=== PATIENT | male | born 1965 | race Caucasian/White ===

== ENCOUNTER 2016-08-03 11:07 | Inpatient (IN) | payer OTHER, MEDICAID ==
[~2016-08-03] VITALS: Ht 167.6 cm; Wt 95.9 kg
[~2016-08-03 11:07] MED LIST: GLIP2.5ER PO; LISI-661 PO; METF500T4 PO; OLAN5TAB2 PO; OLAN7.5T2 PO; OMEP20 PO; SIMV-259 PO; SITA100 PO
[2016-08-03 13:00] VITALS: BP 120/81
[2016-08-03] MEDS ORDERED: HALOPERIDOL 5 MG TABLET PO PRN (13:15)
[2016-08-03] MEDS ORDERED: MAGNESIUM HYDROXIDE SUSPENSION 30 ML UDCUP PO PRN (13:15)
[2016-08-03] MEDS ORDERED: LORazepam 2 MG TABLET PO PRN (13:15)
[2016-08-03] MEDS ORDERED: ZOLPIDEM TARTRATE 10 MG TABLET PO PRN (13:15)
[2016-08-03] MEDS ORDERED: LOPERAMIDE HCL 2 MG CAPSULE PO PRN (13:15)
[2016-08-03] MEDS ORDERED: PROMETHAZINE HCL 25 MG TABLET PO PRN (13:15)
[2016-08-03] MEDS ORDERED: MAG HYDROX/AL HYDROX/SIMETH ES 30 ML SUSPENSION UDCUP PO PRN (13:15)
[2016-08-03] MEDS ORDERED: GLUCAGON,HUMAN RECOMBINANT 1 MG VIAL IM PRN (14:30)
[2016-08-03] MEDS: INSULIN ASPART 100 UNITS/ML SQ PRN ×3 (14:42→20:10)
[2016-08-03 15:36] LABS: GLUCOSE,POINT OF CARE 392 MG/DL (70-110)
[2016-08-03 16:00] VITALS: BP 136/99
[2016-08-03] MEDS ORDERED: INFLUENZA VIRUS VACCINE QVS 2016-17 (3YR+)/PF 60 MCG/0.5 ML SYRINGE IM ONE (16:30)
[2016-08-03] MEDS ORDERED: DIPH25 PO (16:40)
[2016-08-03] MEDS ORDERED: ZIPR40CA2 PO (16:40)
[2016-08-03] MEDS: MetFORMIN HCL 500 MG TABLET PO SCH (16:42)
[2016-08-03] MEDS: LISINOPRIL 10 MG TABLET PO SCH (16:43)
[2016-08-03] MEDS ORDERED: DENTURE ADHESIVE 68 GM CREAM DT PRN (17:15)
[2016-08-03 18:22] LABS: GLUCOSE COMMENT 1 Received Meds; GLUCOSE,POINT OF CARE 275 MG/DL (70-110)
[2016-08-03] MEDS: NICOTINE 21 MG/24 HOUR PATCH TD SCH (18:34)
[2016-08-03 21:32] LABS: GLUCOSE COMMENT 1 Received Meds; GLUCOSE,POINT OF CARE 302 MG/DL (70-110)
[2016-08-04 00:15] VITALS: BP 118/61
[2016-08-04] MEDS ORDERED: PNEUMOCOCCAL VACCINE POLYVALENT 0.5 ML VIAL [PPSV23] IM ONE (02:15)
[2016-08-04 06:18] LABS: GLUCOSE,POINT OF CARE 190 MG/DL (70-110)
[2016-08-04] MEDS: MetFORMIN HCL 500 MG TABLET PO SCH ×2 (06:18→16:33)
[2016-08-04] MEDS: GlipiZIDE 5 MG TABLET PO SCH (06:18)
[2016-08-04] MEDS: INSULIN ASPART 100 UNITS/ML SQ PRN ×4 (06:19→20:52)
[2016-08-04 08:07] LABS: BASOPHILS % (AUTO) 0.5 % (0.0-2.0); EOSINOPHILS % (AUTO) 3.3 % (1.0-6.0); HEMATOCRIT 49.4 % (41-53); HEMOGLOBIN 16.1 g/dL (13.5-17.5); LYMPHOCYTES # (AUTO) 3.7 K/uL (1.0-4.8); LYMPHOCYTES % (AUTO) 32.6 % (22.0-44.0); MEAN CORPUSCULAR HEMOGLOBIN 29.3 pg (26.0-34.0); MEAN CORPUSCULAR HGB CONC 32.5 G/dL (31.0-37.0); MEAN CORPUSCULAR VOLUME 90 fL (80-100); MONOCYTES # (AUTO) 0.9 K/uL (0.1-1.0); MONOCYTES % (AUTO) 7.7 % (2.0-9.0); NEUTROPHILS # (AUTO) 6.3 K/uL (1.8-7.7); NEUTROPHILS % (AUTO) 55.9 % (40.0-70.0); PLATELET COUNT (AUTO) 215 K/uL (150-450); RED BLOOD CELL COUNT(AUTO) 5.49 MIL/uL (4.50-5.90); RED CELL DISTRIBUTION WIDTH 13.5 % (11.5-14.5); WHITE BLOOD COUNT (AUTO) 11.3 K/uL (4.5-11.0)
[2016-08-04 08:34] LABS: ALANINE AMINOTRANSFERASE 35 U/L (12-78); ALBUMIN 3.2 g/dL (3.4-5.0); ANION GAP 4 mmol/L (8-16); ASPARTATE AMINOTRANSFERASE 17 U/L (15-37); BILIRUBIN,TOTAL 0.6 mg/dL (0.1-1.0); CALCIUM, TOTAL 8.3 mg/dL (8.8-10.5); CARBON DIOXIDE 31 mmol/L (22-29); CHLORIDE 100 mmol/L (98-107); CHOL/HDL RATIO 3.9 (4.2-7.3); GLOMERULAR FILTR. RATE CALC > 60 mL/min (>60); POTASSIUM 4.3 mmol/L (3.5-5.1); SODIUM SERUM 135 mmol/L (136-145); UREA NITROGEN, BLOOD 20 mg/dL (7-18)
[2016-08-04 08:38] LABS: HEMOGLOBIN A1C 9.9 % (4.5-6.2)
[2016-08-04 08:41] VITALS: BP 107/56
[2016-08-04] MEDS: LISINOPRIL 10 MG TABLET PO SCH ×2 (08:52→16:31)
[2016-08-04] MEDS: SitaGLIPtin PHOSPHATE 100 MG TABLET PO SCH (08:52)
[2016-08-04] MEDS: NICOTINE 21 MG/24 HOUR PATCH TD SCH (08:52)
[2016-08-04] MEDS: OLANZapine 5 MG TABLET PO SCH (11:02)
[2016-08-04 11:21] LABS: GLUCOSE,POINT OF CARE 141 MG/DL (70-110)
[2016-08-04 16:29] VITALS: BP 123/76
[2016-08-04 16:42] LABS: GLUCOSE,POINT OF CARE 197 MG/DL (70-110)
[2016-08-04] MEDS: OLANZapine 10 MG TABLET PO SCH (20:41)
[2016-08-04] MEDS: DiphenhydrAMINE HCL 50 MG CAPSULE PO SCH (20:41)
[2016-08-04 20:51] LABS: GLUCOSE,POINT OF CARE 159 MG/DL (70-110)
[2016-08-05 01:33] VITALS: BP 114/62
[2016-08-05 06:27] LABS: GLUCOSE,POINT OF CARE 187 MG/DL (70-110)
[2016-08-05] MEDS: MetFORMIN HCL 500 MG TABLET PO SCH ×2 (06:33→16:24)
[2016-08-05] MEDS: GlipiZIDE 5 MG TABLET PO SCH (06:33)
[2016-08-05] MEDS: INSULIN ASPART 100 UNITS/ML SQ PRN ×3 (07:02→20:56)
[2016-08-05] MEDS: LISINOPRIL 10 MG TABLET PO SCH ×2 (08:28→16:24)
[2016-08-05] MEDS: OLANZapine 5 MG TABLET PO SCH (08:28)
[2016-08-05] MEDS: NICOTINE 21 MG/24 HOUR PATCH TD SCH (08:28)
[2016-08-05] MEDS: SitaGLIPtin PHOSPHATE 100 MG TABLET PO SCH (08:28)
[2016-08-05 09:08] VITALS: BP 129/79
[2016-08-05 16:22] VITALS: BP 113/65
[2016-08-05] MEDS: DiphenhydrAMINE HCL 50 MG CAPSULE PO SCH (20:19)
[2016-08-05] MEDS: OLANZapine 10 MG TABLET PO SCH (20:19)
[2016-08-05 20:21] LABS: GLUCOSE,POINT OF CARE 131 MG/DL (70-110)
[2016-08-05 20:22] LABS: GLUCOSE,POINT OF CARE 262 MG/DL (70-110)
[2016-08-06 00:14] VITALS: BP 137/69
[2016-08-06 06:22] LABS: GLUCOSE,POINT OF CARE 159 MG/DL (70-110)
[2016-08-06] MEDS: GlipiZIDE 5 MG TABLET PO SCH (06:34)
[2016-08-06] MEDS: MetFORMIN HCL 500 MG TABLET PO SCH ×2 (06:34→16:40)
[2016-08-06] MEDS: INSULIN ASPART 100 UNITS/ML SQ PRN ×3 (06:58→21:20)
[2016-08-06] MEDS: SitaGLIPtin PHOSPHATE 100 MG TABLET PO SCH (08:47)
[2016-08-06] MEDS: LISINOPRIL 10 MG TABLET PO SCH ×2 (08:47→16:40)
[2016-08-06] MEDS: OLANZapine 5 MG TABLET PO SCH (08:47)
[2016-08-06] MEDS: NICOTINE 21 MG/24 HOUR PATCH TD SCH (08:48)
[2016-08-06 09:04] VITALS: BP 118/76
[2016-08-06 11:26] LABS: GLUCOSE,POINT OF CARE 104 MG/DL (70-110)
[2016-08-06 16:16] VITALS: BP 117/76
[2016-08-06 17:23] LABS: GLUCOSE,POINT OF CARE 195 MG/DL (70-110)
[2016-08-06] MEDS: OLANZapine 10 MG TABLET PO SCH (20:46)
[2016-08-06] MEDS: DiphenhydrAMINE HCL 50 MG CAPSULE PO SCH (20:46)
[2016-08-06 22:02] LABS: GLUCOSE COMMENT 1 Received Meds; GLUCOSE,POINT OF CARE 182 MG/DL (70-110)
[2016-08-07 01:05] VITALS: BP 102/76
[2016-08-07] MEDS: GlipiZIDE 5 MG TABLET PO SCH (06:27)
[2016-08-07] MEDS: MetFORMIN HCL 500 MG TABLET PO SCH (06:27)
[2016-08-07] MEDS: INSULIN ASPART 100 UNITS/ML SQ PRN (06:32)
[2016-08-07 06:47] LABS: GLUCOSE,POINT OF CARE 142 MG/DL (70-110)
[2016-08-07 08:41] VITALS: BP 111/60
[2016-08-07] MEDS: SitaGLIPtin PHOSPHATE 100 MG TABLET PO SCH (08:49)
[2016-08-07] MEDS: OLANZapine 5 MG TABLET PO SCH (08:49)
[2016-08-07] MEDS: NICOTINE 21 MG/24 HOUR PATCH TD SCH (08:49)
[2016-08-07] MEDS: LISINOPRIL 10 MG TABLET PO SCH (08:49)
== END 2016-08-07 11:17 | disposition home or self-care (01) | DRG 885 ==
LOC: EDSTATUS 11:58 → B2S 13:17
PROVIDERS: ADMIT Psychiatry & Neurology Child & Adolescent Psychiatry; ATTEND Psychiatry & Neurology Child & Adolescent Psychiatry
DX: F25.0 Schizoaffective disorder, bipolar type (principal); R45.851 Suicidal ideations; E11.9 Type 2 diabetes mellitus without complications; F10.21 Alcohol dependence, in remission; I10 Essential (primary) hypertension; F17.210 Nicotine dependence, cigarettes, uncomplicated; Z91.14 Patient's other noncompliance with medication regimen; Z87.898 Personal history of other specified conditions; Z79.84 Long term (current) use of oral hypoglycemic drugs; Z79.899 Other long term (current) drug therapy
CPT/HCPCS: 82962; 83036; 84439; 84443; 90471